=== PATIENT | female | born 1975 | race Caucasian/White ===

== ENCOUNTER 2021-07-01 17:51 | Emergency (ER) | payer OTHER ==
[~2021-07-01] VITALS: Ht 157.5 cm; Wt 43.1 kg
[2021-07-01 18:10] VITALS: BP 103/66
== END 2021-07-01 20:42 | disposition left against medical advice (07) ==
LOC: M.ERS 17:51
DX: T50.995A Adverse effect of other drugs, medicaments and biological substances, initial encounter (principal); Z53.21 Procedure and treatment not carried out due to patient leaving prior to being seen by health care provider; Y92.89 Other specified places as the place of occurrence of the external cause